=== PATIENT | female | born 1965 | race Caucasian/White ===

== ENCOUNTER → 2020-05-23 | Outpatient (CLI) | payer OTHER | END | disposition home or self-care (01) | LOC: COVID19 08:31 | PROVIDERS: ATTEND Physician Assistant | DX: Z20.822 Contact with and (suspected) exposure to COVID-19 (principal) ==

== ENCOUNTER → 2021-02-15 | Outpatient (CLI) | payer OTHER | END | disposition home or self-care (01) | LOC: CARD 07:56 | PROVIDERS: ATTEND Physician Assistant | DX: R00.2 Palpitations (principal) ==

== ENCOUNTER → 2021-03-14 | Outpatient (CLI) | payer OTHER | END | disposition home or self-care (01) | LOC: CARD 07:30 | PROVIDERS: ATTEND Physician Assistant | DX: I42.9 Cardiomyopathy, unspecified (principal); F41.9 Anxiety disorder, unspecified; R00.2 Palpitations ==

== ENCOUNTER → 2023-01-06 | Outpatient (CLI) | payer OTHER, BC | END | disposition home or self-care (01) | LOC: CARD 12-03 14:00 | PROVIDERS: ATTEND Internal Medicine Cardiovascular Disease | DX: I07.1 Rheumatic tricuspid insufficiency (principal) ==